=== PATIENT | male | born 1985 | race Caucasian/White ===

== ENCOUNTER 2020-03-06 17:38 | Emergency (ER) | payer MEDICAID ==
[~2020-03-06] VITALS: Ht 177.8 cm; Wt 63.0 kg
--- NOTE | 2020-03-06 18:13 | NUR ---
C/O DIAZ X PAST TWO YEARS, "SLOWLY GETTING WORSE AND WORSE". NO MED TAKEN FOR PAIN TODAY. HAS NOT SEEN DOCTOR FOR PAIN. DENIES N/V. + PHOTOPHOBIA. WEARS GLASSES; LAST VISION APPT "ABOUT A YEAR AGO".
[2020-03-06] MEDS ORDERED: PROCHLORPERAZINE 5 MG/ML, 2ML ONE (18:17)
[2020-03-06] MEDS ORDERED: DIPHENHYDRAMINE 50 MG/ML, 1ML ONE (18:17)
[2020-03-06] MEDS ORDERED: KETOROLAC 30 MG/1 ML ONE (18:17)
[2020-03-06] MEDS ORDERED: DIPHENHYDRAMINE 50 MG/ML, 1ML IVPush ONE (18:30)
[2020-03-06] MEDS ORDERED: KETOROLAC 30 MG/1 ML IVPush ONE (18:30)
[2020-03-06] MEDS ORDERED: SODIUM CHLORIDE 0.9% 1,000ML IVBOLUS ONE (18:30)
[2020-03-06] MEDS ORDERED: PROCHLORPERAZINE 5 MG/ML, 2ML IVPush ONE (18:30)
--- NOTE | 2020-03-06 18:45 | NUR ---
BENADRYL, COMPAZINE AND TORADOL GIVEN PER EMAR.
--- NOTE | 2020-03-06 18:50 | NUR ---
TO MRI PER RANJEET
--- NOTE | 2020-03-06 19:15 | NUR ---
PER ELECTRICAL CONTROLS ENGINEER, PT UNABLE TO DO MRI AND REFUSED MEDICATION OFFER. ERP WILL BE NOTIFIED.
--- NOTE | 2020-03-06 19:40 | NUR ---
RESTING QUIETLY ON GURNEY. REPORTS SLIGHT IMPROVEMENT IN PAIN. DISCUSSED MRI AND POTENTIAL MEDICATION; PT REFUSING MRI.
[2020-03-06 20:19] VITALS: BP 115/76
== END 2020-03-06 20:22 | disposition home or self-care (01) ==
LOC: ED 19:34
DX: G44.219 Episodic tension-type headache, not intractable (principal); R42 Dizziness and giddiness; R20.2 Paresthesia of skin
CPT/HCPCS: 96361; 96374; 96375; 99284; J0780; J1200; J1885; J7030

== ENCOUNTER 2020-05-13 02:47 | Emergency (ER) | payer MEDICAID ==
[~2020-05-13] VITALS: Ht 180.3 cm; Wt 65.0 kg
[2020-05-13 02:51] VITALS: BP 117/79
== END 2020-05-13 03:46 | disposition home or self-care (01) ==
LOC: ED 03:16
DX: F15.10 Other stimulant abuse, uncomplicated (principal); R55 Syncope and collapse; R42 Dizziness and giddiness; R94.31 Abnormal electrocardiogram [ECG] [EKG]; F17.200 Nicotine dependence, unspecified, uncomplicated
CPT/HCPCS: 93005; 99283

== ENCOUNTER 2020-06-20 02:20 | Emergency (ER) | payer MEDICAID ==
[~2020-06-20] VITALS: Ht 172.7 cm; Wt 70.0 kg
[2020-06-20 02:22] VITALS: BP 136/86
--- NOTE | 2020-06-20 02:45 | NUR ---
Pt arrived with brown pocket knife. jointer operator aware. Given to security by Shamika GAMBLE.
[2020-06-20 03:03] LABS: BASOPHILS % (AUTO) 1 % (0-1); EOSINOPHILS % (AUTO) 3 % (1-7); LYMPHOCYTES % (AUTO) 27 % (22-44); MD NO; MEAN CORPUSCULAR HEMOGLOBIN 32.1 pg (27.5-34.5); MEAN CORPUSCULAR HGB CONC 34.4 g/dL (33.2-36.2); MEAN PLATELET VOLUME 7.9 fL (7.4-10.4); MONOCYTES % (AUTO) 11 % (2-9); NEUTROPHILS % (AUTO) 58 % (42-75); PLATELET COUNT 303 x10^3/uL (130-400); RED BLOOD COUNT 4.12 x10^6/uL (4.38-5.82); RED CELL DISTRIBUTION WIDTH 13.5 % (9.4-14.8)
[2020-06-20 03:16] LABS: ALANINE AMINOTRANSFERASE 23 U/L (12-78); ALBUMIN 3.5 g/dL (3.4-5.0); ANION GAP 4 mmol/L (5-15); CALCIUM 8.7 mg/dL (8.5-10.1); CHLORIDE 109 mmol/L (98-107); CREATININE 0.84 mg/dL (0.7-1.3); SALICYLATE LEVEL 2.9 mg/dL (2.8-20.0)
[2020-06-20 03:18] LABS: ALKALINE PHOSPHATASE 104 U/L (45-117); BILIRUBIN,TOTAL 0.4 mg/dL (0.2-1.0); TOTAL PROTEIN 6.9 g/dL (6.4-8.2)
[2020-06-20] MEDS ORDERED: NEOSPORIN OINT. PKT 1 PACKET ONE (05:06)
--- NOTE | 2020-06-20 05:30 | NUR ---
Resting comfortably on stretcher. Visible chest rise/fall noted. No s/sx acute distress. Bed low, side rails up, call blair within reach
--- NOTE | 2020-06-20 06:30 | NUR ---
Pt moved to room 38 in order to utilize safety doors. Remains calm/cooperative. Resting comfortably on stretcher. No s/sx acute distress
--- NOTE | 2020-06-20 07:30 | NUR ---
PT RESTING, REPORT FROM KARLA,
--- NOTE | 2020-06-20 08:30 | NUR ---
PT RESTING, GIVEN MEAL TRAY. SITTER PRESENT
--- NOTE | 2020-06-20 10:30 | NUR ---
PT VOIDED, GIVEN BEVERAGES. SITTER PRESENT
--- NOTE | 2020-06-20 10:34 | NUR ---
SPOKE WITH STEVEN FROM [facility], STATED THEY ARE TAKING THE PT AT 1130. WILL CALL BACK WITH ROOM NUMBER.
--- NOTE | 2020-06-20 11:38 | NUR ---
pt laying in bed resting, he denies any needs at this time. pt is to be transfered to [facility] at approx 1145. called MAVIS [place] to give report.
--- NOTE | 2020-06-20 12:32 | NUR ---
pt laying in bed sleeping. awaiting COVID rapid test results in order to transport patient to [address] [place] [address].
[2020-06-20 12:40] LABS: AMPHETAMINE SCREEN, URINE Positive (Negative); BARBITURATE SCREEN, URINE Negative (Negative); BENZODIAZEPINE SCREEN, URINE Negative (Negative); CANNABINOID SCREEN, URINE Positive (Negative); COCAINE SCREEN, URINE Negative (Negative); METHADONE SCREEN, URINE Negative (Negative); OPIATE SCREEN, URINE Negative (Negative)
== END 2020-06-20 12:58 | disposition other institution (70) ==
LOC: ED 05:34
DX: R45.851 Suicidal ideations (principal); Z20.828 Contact with and (suspected) exposure to other viral communicable diseases; Z48.02 Encounter for removal of sutures; F24 Shared psychotic disorder; F17.210 Nicotine dependence, cigarettes, uncomplicated; Z91.14 Patient's other noncompliance with medication regimen
CPT/HCPCS: 36415; 80053; 80307; 85025; 87635; 99284; 99406

== ENCOUNTER 2020-06-20 12:06 | Inpatient (IN) | payer MEDICAID ==
[~2020-06-20] VITALS: Ht 172.7 cm; Wt 57.1 kg
[2020-06-20] MEDS ORDERED: ACETAMINOPHEN 325 MG TABLET PO PRN (12:30)
[2020-06-20] MEDS ORDERED: ONDANSETRON ODT 4 MG PO PRN (12:30)
[2020-06-20] MEDS ORDERED: BISACODYL 10 MG SUPP PR PRN (12:30)
[2020-06-20] MEDS ORDERED: POLYETHYLENE GLYCOL 17 GM PACKET PO PRN (12:30)
[2020-06-20] MEDS ORDERED: DOCUSATE 100 MG CAPSULE PO PRN (12:30)
[2020-06-20 12:51] LABS: MICROSCOPIC NOT IND
[2020-06-20] MEDS ORDERED: PLEASE ENTER HEIGHT AND WEIGHT MC SCH (13:00)
[2020-06-20 13:14] VITALS: BP 115/76
[2020-06-20] MEDS ORDERED: FLU VACC QS2020-21(6MOS UP)/PF 60MCG/0.5 ML SYR IM-VACC ONE (17:30)
[2020-06-20 19:56] VITALS: BP 101/62
[2020-06-20] MEDS: DOXYCYCLINE 100MG CAP PO SCH (20:47)
[2020-06-20] MEDS ORDERED: DOXYCYCLINE 100MG TABLET PO SCH (21:00)
[2020-06-21 05:45] LABS: BASOPHILS % (AUTO) 1 % (0-1); EOSINOPHILS % (AUTO) 4 % (1-7); LYMPHOCYTES % (AUTO) 29 % (22-44); MEAN CORPUSCULAR HEMOGLOBIN 31.1 pg (27.5-34.5); MEAN CORPUSCULAR HGB CONC 33.1 g/dL (33.2-36.2); MEAN PLATELET VOLUME 8.1 fL (7.4-10.4); MONOCYTES % (AUTO) 11 % (2-9); NEUTROPHILS % (AUTO) 56 % (42-75); PLATELET COUNT 325 x10^3/uL (130-400); RED BLOOD COUNT 4.15 x10^6/uL (4.38-5.82)
[2020-06-21 06:19] LABS: CHOL/HDL RATIO 1.8; LDL/HDL RATIO 0.6 (0.5-3.0)
[2020-06-21 06:28] LABS: MD NO
[2020-06-21 07:07] VITALS: BP 115/71
[2020-06-21] MEDS: NICOTINE 21 MG/24 HR PATCH.TD24 TD SCH (08:56)
[2020-06-21] MEDS ORDERED: NICOTINE 14MG/24 HR PATCH.TD24 TD SCH (09:00)
[2020-06-21] MEDS: DOXYCYCLINE 100MG CAP PO SCH ×2 (09:00→20:12)
[2020-06-21] MEDS ORDERED: HYDROXYZINE PAMOATE 50MG CAP PO PRN (14:30)
[2020-06-21] MEDS ORDERED: OLANZAPINE 5 MG TABLET PO PRN (14:30)
[2020-06-21 19:30] VITALS: BP 108/62
[2020-06-22 05:25] LABS: BASOPHILS % (AUTO) 1 % (0-1); EOSINOPHILS % (AUTO) 5 % (1-7); LYMPHOCYTES % (AUTO) 26 % (22-44); MEAN CORPUSCULAR HEMOGLOBIN 30.9 pg (27.5-34.5); MEAN CORPUSCULAR HGB CONC 32.9 g/dL (33.2-36.2); MEAN PLATELET VOLUME 8.1 fL (7.4-10.4); MONOCYTES % (AUTO) 11 % (2-9); NEUTROPHILS % (AUTO) 58 % (42-75); PLATELET COUNT 321 x10^3/uL (130-400); RED BLOOD COUNT 4.45 x10^6/uL (4.38-5.82); RED CELL DISTRIBUTION WIDTH 13.7 % (9.4-14.8)
[2020-06-22 05:32] LABS: MD NO
[2020-06-22 06:42] VITALS: BP 115/61
[2020-06-22] MEDS: DOXYCYCLINE 100MG CAP PO SCH ×2 (09:00→20:35)
[2020-06-22] MEDS: NICOTINE 21 MG/24 HR PATCH.TD24 TD SCH (09:03)
[2020-06-22 19:35] VITALS: BP 105/70
[2020-06-23 07:00] VITALS: BP 110/63
[2020-06-23] MEDS: DOXYCYCLINE 100MG CAP PO SCH ×2 (08:17→20:33)
[2020-06-23] MEDS: NICOTINE 21 MG/24 HR PATCH.TD24 TD SCH (08:20)
[2020-06-23 19:45] VITALS: BP 108/68
[2020-06-24 07:15] VITALS: BP 111/63
[2020-06-24] MEDS: NICOTINE 21 MG/24 HR PATCH.TD24 TD SCH (10:04)
[2020-06-24] MEDS: DOXYCYCLINE 100MG CAP PO SCH ×2 (10:04→20:41)
[2020-06-24 19:41] VITALS: BP 105/71
[2020-06-25 07:06] VITALS: BP 101/64
[2020-06-25] MEDS: NICOTINE 21 MG/24 HR PATCH.TD24 TD SCH (08:27)
[2020-06-25] MEDS: DOXYCYCLINE 100MG CAP PO SCH ×2 (08:27→20:20)
[2020-06-25 21:39] VITALS: BP_SYST 121; BP_SYST 129; BP_DIAS 63; BP_DIAS 76
[2020-06-26 07:00] VITALS: BP 107/66
[2020-06-26] MEDS: DOXYCYCLINE 100MG CAP PO SCH (08:44)
[2020-06-26] MEDS: NICOTINE 21 MG/24 HR PATCH.TD24 TD SCH (08:45)
== END 2020-06-26 10:40 | disposition home or self-care (01) | DRG 885 ==
LOC: 3E 12:54
PROVIDERS: ADMIT Psychiatry & Neurology Psychosomatic Medicine; ATTEND Psychiatry & Neurology Psychosomatic Medicine
DX: F25.0 Schizoaffective disorder, bipolar type (principal); R45.851 Suicidal ideations; F15.20 Other stimulant dependence, uncomplicated; F11.20 Opioid dependence, uncomplicated; Z59.0 Homelessness; Z91.19 Patient's noncompliance with other medical treatment and regimen; D72.829 Elevated white blood cell count, unspecified; F12.10 Cannabis abuse, uncomplicated; F17.200 Nicotine dependence, unspecified, uncomplicated; R45.850 Homicidal ideations; S61.512A Laceration without foreign body of left wrist, initial encounter; X58.XXXA Exposure to other specified factors, initial encounter; Y93.89 Activity, other specified; Y92.89 Other specified places as the place of occurrence of the external cause; Y99.8 Other external cause status
CPT/HCPCS: 36415; 71045; 80061; 81003; 84439; 84443; 85025; 90686; 93005

== ENCOUNTER 2020-06-30 17:35 | Emergency (ER) | payer MEDICAID ==
[~2020-06-30] VITALS: Ht 172.7 cm; Wt 75.0 kg
--- NOTE | 2020-06-30 18:11 | NUR ---
pt c/o SI. MD in to see pt. pt placed in gown. belongings placed in bag and locked up. UA obtained. pt given food. sitter at door.
[2020-06-30 18:28] LABS: BASOPHILS % (AUTO) 1 % (0-1); EOSINOPHILS % (AUTO) 4 % (1-7); LYMPHOCYTES % (AUTO) 25 % (22-44); MEAN CORPUSCULAR HEMOGLOBIN 31.7 pg (27.5-34.5); MEAN CORPUSCULAR HGB CONC 33.6 g/dL (33.2-36.2); MONOCYTES % (AUTO) 11 % (2-9); NEUTROPHILS % (AUTO) 59 % (42-75); PLATELET COUNT 306 x10^3/uL (130-400); RED BLOOD COUNT 4.12 x10^6/uL (4.38-5.82); RED CELL DISTRIBUTION WIDTH 13.6 % (9.4-14.8)
[2020-06-30 18:31] LABS: AMPHETAMINE SCREEN, URINE Positive (Negative); BARBITURATE SCREEN, URINE Negative (Negative); BENZODIAZEPINE SCREEN, URINE Negative (Negative); CANNABINOID SCREEN, URINE Positive (Negative); COCAINE SCREEN, URINE Negative (Negative); METHADONE SCREEN, URINE Negative (Negative); OPIATE SCREEN, URINE Negative (Negative)
[2020-06-30 18:32] LABS: ALBUMIN 3.6 g/dL (3.4-5.0); ANION GAP 2 mmol/L (5-15); CHLORIDE 109 mmol/L (98-107); CREATININE 1.21 mg/dL (0.7-1.3)
[2020-06-30 18:34] LABS: MD NO
[2020-06-30 18:41] LABS: SALICYLATE LEVEL 2.5 mg/dL (2.8-20.0)
--- NOTE | 2020-06-30 19:16 | NUR ---
REPORT FROM EUGENIA MATAMOROS SITTER AT [facility]
[2020-06-30 21:10] VITALS: BP 98/48
--- NOTE | 2020-06-30 21:42 | NUR ---
MT: PSYCH PACKET SENT TO [facility], [facility], [facility], AND [facility].
--- NOTE | 2020-06-30 22:05 | NUR ---
MT: [facility] CALLED AND ACCEPTED PT FOR 0000. DR MON WILL BE ADMITTING DOCTOR.
--- NOTE | 2020-06-30 22:46 | NUR ---
REPORT GIVEN TO [facility] FOR TRANSFER OF PT.
== END 2020-06-30 23:58 ==
LOC: ED 18:05
DX: R45.851 Suicidal ideations (principal)
CPT/HCPCS: 36415; 80048; 80299; 80307; 80320; 80329; 82040; 84443; 85025; 99283; 99285; G0480

== ENCOUNTER 2020-07-16 01:38 | Emergency (ER) | payer MEDICAID, OTHER ==
[~2020-07-16] VITALS: Ht 180.3 cm; Wt 62.4 kg
[2020-07-16 01:43] VITALS: BP 109/65
--- NOTE | 2020-07-16 02:13 | NUR ---
SEEN AND EXAMINED BY DR. WONG IN TRIAGE. PATIENT DISCHARGED WITH INSTRUCTION. RESOURCES PROVIDED.
== END 2020-07-16 02:21 | disposition home or self-care (01) ==
LOC: ED 01:56
DX: F10.10 Alcohol abuse, uncomplicated (principal); F15.10 Other stimulant abuse, uncomplicated; F17.210 Nicotine dependence, cigarettes, uncomplicated; Z72.9 Problem related to lifestyle, unspecified
CPT/HCPCS: 99281; 99406

== ENCOUNTER 2020-08-01 02:03 | Emergency (ER) | payer MEDICAID ==
[~2020-08-01] VITALS: Ht 180.3 cm; Wt 65.0 kg
--- NOTE | 2020-08-01 02:19 | NUR ---
Pt BIB [employer] for SI. Patient states he wants to jump infront of traffic or OD. Patient states he is upset because he has been doing meth. Noted to have abrasion on bilateral hands and left cheek
--- NOTE | 2020-08-01 02:32 | NUR ---
All belonging collected and placed in locked cabinet. Garage doors lowered and all chairs and tables removed from room.
[2020-08-01 03:11] LABS: BASOPHILS % (AUTO) 1 % (0-1); EOSINOPHILS % (AUTO) 3 % (1-7); LYMPHOCYTES % (AUTO) 24 % (22-44); MEAN CORPUSCULAR HEMOGLOBIN 32.1 pg (27.5-34.5); MEAN CORPUSCULAR HGB CONC 33.8 g/dL (33.2-36.2); MEAN PLATELET VOLUME 8.4 fL (7.4-10.4); MONOCYTES % (AUTO) 11 % (2-9); NEUTROPHILS % (AUTO) 62 % (42-75); PLATELET COUNT 271 x10^3/uL (130-400); RED BLOOD COUNT 3.89 x10^6/uL (4.38-5.82); RED CELL DISTRIBUTION WIDTH 13.6 % (9.4-14.8)
[2020-08-01 03:22] LABS: ALBUMIN 3.5 g/dL (3.4-5.0); ANION GAP 2 mmol/L (5-15); CALCIUM 8.9 mg/dL (8.5-10.1); CHLORIDE 111 mmol/L (98-107); CREATININE 1.01 mg/dL (0.7-1.3); SALICYLATE LEVEL 1.8 mg/dL (2.8-20.0)
[2020-08-01 03:38] LABS: MD NO
--- NOTE | 2020-08-01 03:52 | NUR ---
Patient ambulated to the restroom and obtained urine. Patient ambulated back to the room, resting comfortably at this time
[2020-08-01 04:11] LABS: AMPHETAMINE SCREEN, URINE Positive (Negative); BARBITURATE SCREEN, URINE Negative (Negative); BENZODIAZEPINE SCREEN, URINE Negative (Negative); CANNABINOID SCREEN, URINE Positive (Negative); COCAINE SCREEN, URINE Negative (Negative); METHADONE SCREEN, URINE Negative (Negative); OPIATE SCREEN, URINE Negative (Negative)
--- NOTE | 2020-08-01 05:20 | NUR ---
Patient resting comfortably on gurney. Offers no compalints at this time.
--- NOTE | 2020-08-01 05:49 | NUR ---
[facility] nurse in to see patient. Nurse stated that they will get back to us regarding taking patient.
--- NOTE | 2020-08-01 06:00 | NUR ---
packet faxed to [facility]. ANSHU paulies.
--- NOTE | 2020-08-01 07:20 | NUR ---
REPORT RECEIVED FROM SONDRA GAMBLE. PT SLEEPING ON GURNEY W/ SIDE RAILS UPX2. GARAGE DOORS DOWN FOR SAFETY. SITTER REQUESTED FROM [employer]SCAPE [employer]OR[employer], NO SITTER AVAILABLE AT THIS TIME. PLAN IS TO MOVE PT DOWN [place] ONCE ROOM IS AVAILABLE. RESP EVEN AND UNLABORED, KIMBERLY.
[2020-08-01 07:52] VITALS: BP 113/70
--- NOTE | 2020-08-01 07:56 | NUR ---
PT REPORTS STILL HAVING THOUGHTS OF SUICIDE, STATES THAT HE WANTS TO JUMP [place] [employer]. PT UPDATED ON POC. PT OFFERED SHOWER, PT DECLINED. PT HAS DRIED BLOOD ON FACE FROM SMALL LAC, NOT ACTIVELY BLEEDING, OFFERED TO CLEAN FOR PT, PT DECLINED AND STATES HE WANTS TO SLEEP MORE. PT PROVIDED W/ WARM BLANKET FOR COMFORT.
--- NOTE | 2020-08-01 07:58 | NUR ---
HOSPITAL BED REQUESTED.
--- NOTE | 2020-08-01 08:37 | NUR ---
REPORT GIVEN TO EMILIE GAMBLE. PT AMBULATED TO ED1 W/ A STEADY GAIT. RESTING ON HOSPITAL BED W/ GARAGE DOORS DOWN AND SITTER OUTSIDE ROOM FOR SAFETY. PROVIDED W/ SAFETY DIET TRAY. RESP EVEN AND UNLABORED,
--- NOTE | 2020-08-01 08:49 | NUR ---
REPORT FROM RUBI. PT EATING MEAL TRAY. ON HOSPITAL BED. SITTER PRESENT
--- NOTE | 2020-08-01 10:29 | NUR ---
PT SLEEPING, SITTER PRESENT
--- NOTE | 2020-08-01 11:25 | NUR ---
THROUGHPUT: CALLED [facility] REGARDING DENIAL OR ACCEPTANCE, THEY STATE NEVER RECEIVED PACKET, REFAXED AND RECEIVED FAX CONFIRMATION. CALLED [facility], THEY DENIED, "RAN OUT OF DAYS"
--- NOTE | 2020-08-01 11:38 | NUR ---
MEDICATED PER ORDERS, GIVEN COOKIES. SITTER PRESENT
[2020-08-01] MEDS ORDERED: NALTREXONE HCL 50 MG TABLET PO ONE (12:00)
--- NOTE | 2020-08-01 12:00 | NUR ---
SWABBED FOR COVID
--- NOTE | 2020-08-01 13:56 | NUR ---
pt resting, sitter present
--- NOTE | 2020-08-01 14:38 | NUR ---
THROUGHPUT: [facility] WILL ACCEPT, AWAITING ACCEPTING PHYSICAN.
--- NOTE | 2020-08-01 15:45 | NUR ---
REPORT TO EDUIN AT [facility]
== END 2020-08-01 17:58 ==
LOC: ED 02:14
DX: S00.81XA Abrasion of other part of head, initial encounter (principal); Z20.828 Contact with and (suspected) exposure to other viral communicable diseases; S60.512A Abrasion of left hand, initial encounter; S60.511A Abrasion of right hand, initial encounter; R45.851 Suicidal ideations; F15.129 Other stimulant abuse with intoxication, unspecified; Z72.9 Problem related to lifestyle, unspecified; X58.XXXA Exposure to other specified factors, initial encounter; Y93.89 Activity, other specified; Y92.89 Other specified places as the place of occurrence of the external cause; Y99.8 Other external cause status
CPT/HCPCS: 36415; 80048; 80299; 80307; 80320; 80329; 82040; 85025; 87635; 99285; G0480